=== PATIENT | female | born 1990 | race Two or more races ===

== ENCOUNTER 2017-01-04 03:21 | Emergency (ER) | payer SELFPAY ==
--- NOTE | 2017-01-04 03:57 | ED Physician Chart ---
Chief Complaint/HPI - Patient Information Date Seen:: 01/04/17 Time Seen:: 03:51 Chief Complaint:: "can't sleep" History of Present Illness:: 26-year-old female, otherwise healthy, complains of acute, moderate, feeling like she "can't sleep" 2 weeks. Feels as though she may have some associated racing heart rate. Says that she recently moved in with her fianc. Says she feels safe at home. Denies fevers, headache, acute vision changes, nausea, vomiting, diaphoresis, abdominal pain, dysuria, gross hematuria, numbness or tingling of any extremities. Allergies:: Allergies Allergy/AdvReac Type Severity Reaction Status Date / Time No Known Allergies Allergy Verified 01/04/17 03:36 Vitals:: Vital Signs - 8 hr 01/04/17 03:25 Temp 98.1 F HR 77 RR 18 BP 156/97 O2 Sat % 97 Historian:: Patient Review:: Nurse's Note Reviewed Review of Systems - Review of Systems Other: Complete system review otherwise unremarkable except as noted in history of present illness. Past Medical History - Past Medical History Past Medical History: No significant medical hx Family History: None Social History: Non Smoker, No Alcohol, No Drug Use, Employed Surgical History: None Psychiatricy History: None Medication: None Family Medical History - Family Member Mother History Unknown: Yes Physical Exam - Physical Examination Other:: INITIAL VITAL SIGNS: Reviewed by me GENERAL: Alert and interactive. No acute distress HEAD: Head is normocephalic and atraumatic EYES: EOMI. PERRL. No scleral icterus. No conjunctival injection ENT: Moist mucous membranes. NECK: Supple. No masses. Full range of motion RESPIRATORY: No tachypnea. Clear breath sounds bilaterally. No wheezing, rales, or rhonchi CV: Regular rate and rhythm. No murmurs, rubs, or gallops ABDOMEN: Soft, non-distended, non-tender. No guarding. No rebound. No masses. EXTREMITIES: No deformity. No cyanosis. No edema. SKIN: Warm and dry. No obvious rashes. NEUROLOGIC: Alert and oriented. Face is symmetric. Speech is normal. Moves all extremities equally. Motor and sensory distally intact. Labs/Radiology/EKG Results - EKG Interpretations Comments:: Single lead rhythm strip Interpretation by Clemente Clay MD: Normal Sinus Rhythm with ventricular rate of 75 beats per minute Normal axis Normal intervals No acute ST or T wave changes. No obvious STEMI ED Septic Shock - . Is Septic Shock (SBP<90, OR Lactate>4 mmol\\L) present?: No - <6hrs of presentation: Vital Signs: Vital Signs - 8 hr 01/04/17 03:25 Temp 98.1 F HR 77 RR 18 BP 156/97 O2 Sat % 97 Reassessment (Disposition) - Reassessment Reassessment:: Patient essentially complaining of what sounds like insomnia 2 weeks. Recently moved in with her fianc after becoming engaged. Patient says she does not want to have lab work done nor does she want any type of medication that might help her sleep. Discussed her vital signs which are all essentially unremarkable. She does have elevated blood pressure. Systolic about 150+ millimeters mercury. Patient is also obese. We discussed low-salt diet and exercise and weight loss to try and help the blood pressure. Provided reassurance and discussed all of vital signs. Rhythm strip shows sinus rhythm at 75 bpm. Denied any pain. Recommended follow-up with primary care x1-2 days. Return to ER precautions given. Patient says she understands and agrees with the plan. Blood pressure was noted to be elevated over 120/80. There were no signs of hypertension. Discussed the findings with the patient and recommended that the patient follow up with the primary care physician regarding the elevated blood pressure. Reassessment Condition:: Improved - Diagnosis Diagnosis:: Insomnia Elevated blood pressure without the diagnosis of hypertension - Aftercare/Follow up Instructions Aftercare/Follow-Up Instructions:: Counseled pt regarding lab results/diagnosis & need follow up, Refer to Discharge Instructions - Patient Disposition Discharge/Transfer:: Home Time:: 03:57 Condition at Disposition:: Improved ED Discharge Plan - Patient Disposition Admit/Discharge/Transfer: PT DISCHARGED HOME Condition at Disposition: Improved Instructions: Insomnia
== END 2017-01-04 04:10 | disposition home or self-care (01) ==
LOC: ER 03:21
DX: G47.00 Insomnia, unspecified (principal); R03.0 Elevated blood-pressure reading, without diagnosis of hypertension
CPT/HCPCS: Z7502